=== PATIENT | female | born 1995 | race African-American/Black ===

== ENCOUNTER 2018-03-08 14:54 | Emergency (ER) | payer SELFPAY ==
[~2018-03-08] VITALS: Ht 165.1 cm; Wt 60.0 kg
[2018-03-08] MEDS ORDERED: KETOROLAC 30MG/ML VIAL IV ONE (18:45)
[2018-03-08 22:21] VITALS: BP 109/63
== END 2018-03-08 22:34 | disposition home or self-care (01) ==
LOC: ER 16:30
DX: J93.83 Other pneumothorax (principal); I26.99 Other pulmonary embolism without acute cor pulmonale; R07.2 Precordial pain; R09.1 Pleurisy; F41.9 Anxiety disorder, unspecified
CPT/HCPCS: 36415; 71045; 81025; 85379; 93005; 96374; 99285; J1885